=== PATIENT | female | born 1960 | race Hispanic/Latino ===

== ENCOUNTER 2018-01-16 11:35 | Outpatient (CLI) | payer OTHER | END 2018-01-16 11:36 | disposition home or self-care (01) | LOC: LABHHL 11:35 | PROVIDERS: ATTEND Surgery | DX: N60.81 Other benign mammary dysplasias of right breast (principal); N62 Hypertrophy of breast | CPT/HCPCS: 88305 ==

== ENCOUNTER 2019-01-14 15:02 | Outpatient (CLI) | payer MEDICAID, OTHER | END 2019-01-14 15:03 | disposition home or self-care (01) | LOC: LABHHL 15:02 | PROVIDERS: ATTEND Surgery | DX: N60.11 Diffuse cystic mastopathy of right breast (principal) | CPT/HCPCS: 88305; 88341; 88342 ==